=== PATIENT | female | born 1985 | race Caucasian/White ===

== ENCOUNTER → 2018-04-12 | Outpatient (CLI) | payer OTHER, MEDICAID | LOC: WSo 15:06 | PROVIDERS: ATTEND Obstetrics & Gynecology | DX: Z31.82 Encounter for Rh incompatibility status (principal) | CPT/HCPCS: 96372 ==

== ENCOUNTER 2018-06-29 04:50 | Inpatient (IN) | payer OTHER, MEDICAID ==
[~2018-06-29] VITALS: Ht 157.5 cm; Wt 90.5 kg
[2018-06-29] VITALS (67 sets, daily range): BP systolic 103–161; BP diastolic 50–80
[2018-06-29] MEDS ORDERED: D5 LR IV SOLUTION 1,000 ML IV SCH (05:32)
[2018-06-29] MEDS ORDERED: D5 LR IV SOLUTION 1,000 ML IV ONE (05:32)
[2018-06-29] MEDS ORDERED: CATHETER FLUSH 10 ML SYR IV SCH (06:00)
[2018-06-29 06:09] LABS: BASOPHILS % (AUTO) 0 % (0-10); EOSINOPHILS % (AUTO) 0 % (0-10); HEMATOCRIT 36 % (35-52); HEMOGLOBIN 12.4 G/DL (11.5-16.0); LYMPHOCYTES # (AUTO) 2.2 X 10^3 (1.0-4.0); LYMPHOCYTES % (AUTO) 24 % (12-44); MEAN CORPUSCULAR HEMOGLOBIN 32 PG (25-34); MEAN CORPUSCULAR HGB CONC 34 G/DL (32-36); MEAN CORPUSCULAR VOLUME 92 FL (80-99); MEAN PLATELET VOLUME 10.7 FL (7.4-10.4); MONOCYTES # (AUTO) 0.8 X 10^3 (0.0-1.0); MONOCYTES % (AUTO) 9 % (0-12); NEUTROPHILS % (AUTO) 67 % (42-75); PLATELET COUNT 232 10^3/uL (130-400); RED BLOOD COUNT 3.93 10^6/uL (4.35-5.85); RED CELL DISTRIBUTION WIDTH 12.8 % (10.0-14.5)
[2018-06-29] MEDS ORDERED: OXYTOCIN/NORMAL SALINE 500 ML IV SCH ×2 (07:53→18:49)
--- NOTE | 2018-06-29 07:57 | History & Physical ---
History and Physical Date Seen by Provider: Jun 29, 2018 Time Seen by Provider: 07:55 This patient is a 32-year-old G1 white female 518. She is admitted about 5 a.m. with complaint of rupture membranes occurring about 4 a.m. with clear fluid. She denies bleeding. She's had no problems with this . GBS culture done after 35 weeks gestation was negative. Allergies are none Medications are vitamins Past medical history, past surgical history, obstetric history, family history, social histories, are per the antepartum record HEENT exam is normal Neck is supple no lymphadenopathy no thyromegaly Abdomen is gravid soft nontender nondistended Extremities show no clubbing cyanosis there is no Homans sign. Pelvic exam per the admitting nurse shows a cervix is just a dimple but 60 percent effaced vertex presentation and -2 station. Patient was grossly ruptured and nitrazine was positive. monitor shows normal heart rate pattern with occasional contractions Laboratory Tests 06/29/18 05:50 Assessment and plan term at 40 weeks gestation with PROM. Plan is for augmentation with Pitocin. We anticipate a vaginal delivery area plans in preparation replace showed a be necessary PROM at 40 weeks gestation Allergies and Home Medications Allergies Coded Allergies: No Known Drug Allergies (Unverified , 06/29/18) Patient Home Medication List Home Medication List Reviewed: Yes Clinical Quality Measures DVT/VTE Risk/Contraindication: Risk Factor Score Per Nursin RFS Level Per Nursing on Admit: 1=Low/No VTE PPX ELLY UNDERWOOD MD Jun 29, 2018 7:57 am
[2018-06-29] MEDS ORDERED: LIDOCAINE/EPI 2% 1:200,00 (XYLOCAINE) 10 ML VIAL ONE (10:44)
[2018-06-29] MEDS ORDERED: SUFENTA 0.6MCG/ML BUPIVA 0.125 100 ML ONE (11:13)
[2018-06-29] MEDS ORDERED: BUPIVACAINE 0.25% 30 ML (SENSORCAINE) VIAL ONE (12:01)
[2018-06-29] MEDS ORDERED: LIDOCAINE PF 2% 5 ML (XYLOCAINE) VIAL ONE (12:01)
[2018-06-29] MEDS ORDERED: fentaNYL INJECTION 100 MCG/2 ML AMP ONE (12:02)
[2018-06-29] MEDS ORDERED: LACTATED RINGERS 1,000 ML IV ONE (12:43)
[2018-06-29] MEDS ORDERED: ONDANSETRON 4 MG/2 ML (SDV) Z0FRAN IV PRN (12:45)
[2018-06-29] MEDS ORDERED: diphenhydrAMINE 50 MG/ML INJ (BENADRYL) IV PRN (12:45)
[2018-06-29] MEDS ORDERED: CATHETER FLUSH 10 ML SYR IV PRN (12:45)
[2018-06-29] MEDS ORDERED: EPIDURAL (SUFENTA 0.6MCG/ML BUPIVA 0.125%) 100 ML BAG EPI SCH (12:45)
[2018-06-29] MEDS ORDERED: NALOXONE 0.4 MG/ML 1 ML (NARCAN) VIAL IV PRN (12:45)
--- OUTSIDE RECORDS SUMMARY | 2018-06-29 15:51 | XMS REPORT ---
Author MAX Machuca Organization [employer] Address Unknown Phone Unavailable Care Team Providers Care Stable Helper Name Role Phone MAX VALLES CP Unavailable Allergies, Adverse Reactions, Alerts Substance Reaction Event Type N.K.D.A. 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 Medications Medication Code System Code Instructions Start Date End Date Status Dosage Ortho Tri-Cyclen (28) [facility] [address]-83 0.18/0.215/0.25 MG-35 MCG Orally Once a day 1 tablet Procedures Procedure Coding System Code Date Office Visit, Est Pt., Level 2 CPT-4 12325 Sep 07, 2016 EXC TR-EXT B9 LUCI 0.6-1 CM CPT-4 11019 Sep 07, 2016 Vital Signs Date/Time: Sep 07, 2016 Cardiac Monitoring Heart Rate 76 bpm Weight 142.2 lbs Height 62 in BMI 26.01 Index Blood Pressure Diastolic 80 mmHg Blood Pressure Systolic 120 mmHg Results Name Result Date Reference Range Unit Abnormality Flag EXC BENIGN LEISON 0.6-1 cm (specify location) Summary Purpose [employer] Submission
[2018-06-29] MEDS ORDERED: IBUP-1780 PO (18:53)
[2018-06-29] MEDS ORDERED: OXYC-471 PO (18:53)
[2018-06-29] MEDS ORDERED: DOCU100C37 PO (18:53)
--- NOTE | 2018-06-29 18:54 | Discharge Instructions ---
Discharge Instructions Discharge Medications New, Converted or Re-Newed RX: RX on Chart Patient Instructions Patient Instructions: As directed Return to The Hospital For: As directed Activity & Diet Discharge Diet: No Restrictions Activity as Tolerated: No Orders-Post D/C & Referrals Follow Up Appt: Call to make follow up appt. for patient in 4 weeks. Activity Per routine post vaginal delivery instructions. Diet as tolerated Patient may shower or tub bathe as desired. ELLY UNDERWOOD MD Jun 29, 2018 6:54 pm
[2018-06-29] MEDS ORDERED: ONDANSETRON 4 MG/2 ML (SDV) Z0FRAN IVP PRN (19:00)
[2018-06-29] MEDS ORDERED: TETANUS,DIPTH,PERTUSS P/F (BOOSTRIX) 0.5 ML VIAL IM ONE (19:00)
[2018-06-29] MEDS ORDERED: oxyCODONE/APAP 5/325MG (PERCOCET 5) TABLET PO PRN (19:00)
[2018-06-29] MEDS ORDERED: MEASLES,MUMPS,RUBELLA 1 EA INJ SC ONE (19:00)
[2018-06-29] MEDS ORDERED: BENZOCAINE/MENTHOL (DERMOPLAST) 56 ML CAN TP PRN (19:00)
[2018-06-29] MEDS: KETOROLAC 30 MG/ML VIAL IV SCH (22:07)
[2018-06-29] MEDS: DOCUSATE SODIUM 100 MG (COLACE) CAP PO SCH (22:11)
--- NOTE | 2018-06-29 22:21 | OPERATIVE REPORT ---
DATE OF SERVICE: 06/29/2018 The patient delivered by term operative vaginal delivery, a viable male with Apgars of 5 and 9 at 1 and 5 minutes respectively, a weight of 7 pounds and 13 ounces, a time of 19:08 and a cord blood gas with a pH of 6.91 and pO2 of 19, pCO2 of 118.6 and a base excess of -9.2. Kaplan forceps were applied to shorten the second stage of labor as the patient had been pushing in the range of 23 to 24 minutes having progressively deeper, progressively persistent decels with pushing. Initially there was nice recovery back into the 120s between contractions, but this was beginning to wane. The baby was straight OP and was unwilling to rotate with manual pressure. The baby was pushed to the introitus with each push, but then turtled back to about a -1 station afterwards. With the heart rate persistently now under 100, Kaplan forceps were applied with the baby pushed down to the +3 station and straight OP. The bladder having been emptied via the Farmer catheter just before the patient started pushing. Kalpan forceps were easily applied. Correct placement was confirmed and then gentle traction was employed to prevent the baby from turtleing between contractions, then gentle traction along pelvic axis with mom pushing with the subsequent two contractions, delivered the vertex over a midline episiotomy that was performed when the perineum was obstructing the delivery, after about 2 pushes. The Kaplan forceps were removed as the mom pushed the vertex over the perineum. The was bulb suctioned on delivery of the head. There was a mild dystocia of the shoulders encountered. Roxanne released that without difficulty. It was less than a minute between delivery of the head and delivery of the shoulders. This dystocia seemed to be more an effect of the epidural still being somewhat effective and impeding mom's pushing effort. The left shoulder was anterior, and it delivered fairly easily with Roxanne and with digital extraction via the axilla and then the right shoulder delivered easily. The was dried and suctioned and stimulated. The infant was quite lethargic and somewhat cyanotic on delivery. The infant did begin to show some signs of respiratory effort, pulse was in the 80s and gradually improved from that. Once the cord was pulseless, it was doubly clamped and the baby taken to the warmer for resuscitation with the pediatric nurse and with respiratory therapy. The infant again had Apgars 5 and 9 at 1 and 5 minutes respectively. Cord bloods were obtained after delivery and cutting of the cord. The placenta then delivered fairly promptly spontaneously Moore. It was normal with a 3-vessel cord. The cervix, vagina, rectum and perineum were examined and found intact, except for the midline episiotomy that was performed after having used local to augment the epidural in the posterior fourchette and perineum. That episiotomy was now repaired with a single suture of 3-0 Vicryl in the usual manner without difficulty to good reapproximation and good hemostasis. Sponge and needle counts were correct on completion of the delivery and the repair. The mom tolerated the delivery and the repair well. Mom remained in the LDR for recovery. The baby initially stayed with the mom, had recovered quite nicely and then was eventually taken to the full term nursery. Job ID: [id number] DocumentID: [id number] Dictated Date: 06/29/2018 19:41:11 Commercial Portfolio Manager Date: 06/29/2018 22:21:02 Dictated By: ELLY UNDERWOOD MD MTDD
[2018-06-30] VITALS: BP 109/64
[2018-06-30 04:15] VITALS: BP 98/60
[2018-06-30] MEDS: KETOROLAC 30 MG/ML VIAL IV SCH ×3 (04:22→12:55)
--- NOTE | 2018-06-30 06:58 | Progress Note-Standard ---
Standard Progress Note Progress Notes/Assess & Plan Date Seen by Provider: Jun 30, 2018 Time Seen by Provider: 06:57 Progress/Assessment & Plan This patient is without complaint. She is ambulating, voiding, tolerating oral intake well, has good pain control. Patient denies chest pain, denies shortness of breath, denies headache, denies nausea vomiting. Vital Signs 06/30/18 04:15 Temp 97.9 Pulse 72 Resp 18 B/P (MAP) 98/60 (73) Pulse Ox 98 O2 Delivery Room Air Signs are stable. Patient is afebrile. Fundus is below the umbilicus and nontender. Extremities show clubbing cyanosis. There is no Homans sign. There is some pretibial pitting edema that is with. Assessment and plan day number 1 status post term operative vaginal delivery doing well. Plan is for routine convalescence care today and consider discharge home tomorrow ELLY UNDERWOOD MD Jun 30, 2018 6:58 am
[2018-06-30 08:41] VITALS: BP 119/70
[2018-06-30] MEDS ORDERED: IBUPROFEN 800 MG (MOTRIN) TAB PO ONE (08:50)
[2018-06-30] MEDS: DOCUSATE SODIUM 100 MG (COLACE) CAP PO SCH ×2 (08:54→21:00)
[2018-06-30] MEDS ORDERED: TETANUS,DIPTH,PERTUSS P/F (BOOSTRIX) 0.5 ML VIAL IM ONE (09:33)
[2018-06-30 12:40] VITALS: BP 129/69
--- NOTE | 2018-06-30 15:33 | Anesthesia-Regional Post-Op ---
Regional Patient Condition Mental Status: Alert, Oriented x3 Circulation: Same as Pre-Op Headache: Absent Sensation: Full Recovery Motor Block: Absent Post Op Complications Complications None Follow Up Care/Instructions Patient Instructions None needed. Anesthesia/Patient Condition Patient is doing well, no complaints, stable vital signs, no apparent adverse anesthesia problems. No complications reported per nursing. D/C home per [facility] [place] Criteria: Yes JACKLYN LAZO CRNA Jun 30, 2018 15:33
[2018-06-30] MEDS: IBUPROFEN 800 MG (MOTRIN) TAB PO SCH (19:06)
[2018-06-30] MEDS ORDERED: WITCH HAZEL(TUCKS) 40 EA JAR ONE (20:00)
[2018-06-30 20:24] VITALS: BP 122/72
[2018-06-30] MEDS ORDERED: WITCH HAZEL(TUCKS) 40 EA JAR TOP PRN (20:45)
[2018-07-01] MEDS: IBUPROFEN 800 MG (MOTRIN) TAB PO SCH ×2 (01:19→07:24)
[2018-07-01 02:30] VITALS: BP 124/74
[2018-07-01 06:31] VITALS: BP 99/58
--- NOTE | 2018-07-01 07:14 | Progress Note-Standard ---
Standard Progress Note Progress Notes/Assess & Plan Date Seen by Provider: Jul 01, 2018 Time Seen by Provider: 07:13 Progress/Assessment & Plan This patient is without complaint. She is ambulating, voiding, tolerating oral intake well, has good pain control. Patient denies chest pain, denies shortness of breath, denies headache, denies nausea vomiting. Vital Signs 06/30/18 04:15 Temp 97.9 Pulse 72 Resp 18 B/P (MAP) 98/60 (73) Pulse Ox 98 O2 Delivery Room Air Signs are stable. Patient is afebrile. Fundus is below the umbilicus and nontender. Extremities show clubbing cyanosis. There is no Homans sign. There is some pretibial pitting edema that is with. Assessment and plan day number 1 status post term operative vaginal delivery doing well. Plan is for routine convalescence care today and consider discharge home tomorrow July 01, 2018 Patient without complaint. She is ambulating, voiding, tolerating oral intake well has good pain control. Patient is requesting discharge home. Patient denies chest pain, denies shortness breath, denies nausea vomiting, denies headache. Vital Signs 07/01/18 06:31 Temp 97.8 Pulse 66 Resp 18 B/P (MAP) 99/58 (72) Pulse Ox 97 O2 Delivery Room Air Vital signs are stable. Patient afebrile. Fundus is firm below the umbilicus and nontender. Extremities show no clubbing cyanosis. There is no Homans sign. Assessment and plan post operative day number 2 status post term operative vaginal delivery doing well. Plan is for discharge home with follow-up in clinic Final Diagnosis Term operative vaginal delivery ELLY UNDERWOOD MD Jul 01, 2018 7:14 am
[2018-07-01 08:00] VITALS: BP 121/77
[2018-07-01] MEDS: DOCUSATE SODIUM 100 MG (COLACE) CAP PO SCH (09:01)
== END 2018-07-01 11:00 | disposition home or self-care (01) | DRG 775 ==
LOC: WSo 04:50 → LDRP 04:53 → WSo 05:27 → LDRP 05:27
PROVIDERS: ADMIT Obstetrics & Gynecology; ATTEND Obstetrics & Gynecology
PROC: 10D07Z3 Extraction of Products of Conception, Low Forceps, Via Natural or Artificial Opening (ICD-10-PCS; principal; 2018-06-29)
PROC: 0W8NXZZ Division of Female Perineum, External Approach (ICD-10-PCS; 2018-06-29)
DX: O76 Abnormality in fetal heart rate and rhythm complicating labor and delivery (principal); Z37.0 Single live birth; Z3A.40 40 weeks gestation of pregnancy; Z23 Encounter for immunization
CPT/HCPCS: 36415; 85025; 86850; 86900; 86901; 90715; 99212